=== PATIENT | male | born 1965 | race Caucasian/White ===

== ENCOUNTER 2017-05-30 16:15 | Emergency (ER) | payer OTHER ==
[~2017-05-30] VITALS: Ht 170.2 cm; Wt 80.0 kg
[~2017-05-30 16:15] MED LIST: ATORVASTATIN CA40 M1 GT; COR6 GT; FUROSEMIDE40 MG GT; GOOD SENSE ASPI81 M3 PO; LISINOPRIL2.5 MG GT; PLA75 PO; PRILOSEC OTC20 M1 GT; SEROQUEL25 MG GT
[2017-05-30 18:58] LABS: BASOPHIL % 0.4 % (0-2); PLATELET COUNT 198 x10^3mcL (130-400); RED CELL DISTRIBUTION WIDTH 13.3 % (11.5-14.5)
[2017-05-30 19:04] LABS: CALCIUM 9.1 mg/dL (8.5-10.1); CARBON DIOXIDE 31.9 mmol/L (21-32); CHLORIDE SERUM 104 mmol/L (98-107); CREATININE SERUM 0.8 mg/dL (0.7-1.3); GFR1 > 60 mL/min; GLUCOSE SERUM 84 mg/dL (74-106); SODIUM SERUM 141 mmol/L (136-145)
[2017-05-30 21:24] VITALS: BP 151/107
== END 2017-05-30 21:24 | disposition home or self-care (01) ==
LOC: ED 16:15
PROVIDERS: Emergency Medicine
DX: I10 Essential (primary) hypertension (principal); E11.9 Type 2 diabetes mellitus without complications; Z79.82 Long term (current) use of aspirin; Z79.899 Other long term (current) drug therapy; Z79.4 Long term (current) use of insulin; Z86.73 Personal history of transient ischemic attack (TIA), and cerebral infarction without residual deficits
CPT/HCPCS: 36415